=== PATIENT | male | born 1960 | race Caucasian/White ===

== ENCOUNTER 2020-01-31 23:31 | Observation (INO) | payer BC ==
[2020-01-31 23:41] VITALS: BMI 25.4
--- NOTE | 2020-01-31 23:47 | PDOC ---
History of Present Illness - General Chief Complaint: Chest Pain Stated Complaint: CHEST PAIN Time Seen by Provider: 01/31/20 23:46 - History of Present Illness Initial Comments: 02/01/20 00:46 59y/o M hx of sarcoidosis and acoustic neruoma. presents to ED with chest pain which began 3 hours ago. pain is stabbing in nature and left sided. worsens when he lays down and improves with sitting up. no radiation to his arm or back, and he has not had pain like this in the past. He denies any fevers, chills, shortness of breath, coughing, pleuritic chest pain, recent trauma, viral illness, hx of blood clots unilateral leg swelling. PCP: Dr. Schafer 02/01/20 00:57 Past History - Past Medical History Allergies/Adverse Reactions: Allergies Allergy/AdvReac Type Severity Reaction Status Date / Time No Known Allergies Allergy Verified 01/31/20 23:41 Home Medications: Ambulatory Orders predniSONE [Deltasone -] 5 mg PO DAILY 01/12/12 predniSONE [Deltasone -] 5 mg PO DAILY #7 tablet 01/28/13 Aspirin [ASA -] 81 mg PO DAILY #30 tab.chew 02/01/20 Atorvastatin Ca [Lipitor] 40 mg PO HS #30 tablet 02/01/20 COPD: Yes (sarcoidosis) - Surgical History Abdominal Surgery: Yes (acoustic neuroma) - Psycho Social/Smoking Cessation Hx Smoking Status: No Smoking History: Never smoked Have you smoked in the past 12 months: No Number of Cigarettes Smoked Daily: 0 Hx Alcohol Use: Yes (Occasional) Drug/Substance Use Hx: Yes Substance Use Type: Alcohol Hx Substance Use Treatment: No Review of Systems - Review of Systems Constitutional: No: Chills, Fever HEENTM: No: Eye Pain, Blurred Vision Respiratory: No: Cough, Shortness of Breath, Wheezing Cardiac (ROS): Yes: Chest Pain. No: Edema ABD/GI: No: Nausea, Vomiting : No: Burning, Dysuria Musculoskeletal: No: Back Pain, Joint Pain Integumentary: No: Bruising, Change in Color Neurological: No: Headache, Numbness, Tingling *Physical Exam - Vital Signs Last Vital Signs Temp Pulse Resp BP Pulse Ox 97.9 F 78 18 121/68 98 01/31/20 23:38 01/31/20 23:38 01/31/20 23:38 01/31/20 23:38 01/31/20 23:38 - Physical Exam 02/01/20 00:50 GENERAL: Awake, alert, and fully oriented, in no acute distress HEAD: No signs of trauma, normocephalic, atraumatic EYES:EOMI, sclera anicteric, conjunctiva clear ENT: Auricles normal inspection, hearing grossly normal, nares patent, oropharynx clear without exudates. Moist mucosa NECK: Normal ROM, supple, no lymphadenopathy, JVD, or masses LUNGS: No distress, speaks full sentences, clear to auscultation bilaterally HEART: Regular rate and rhythm, normal S1 and S2, no murmurs, rubs or gallops, peripheral pulses normal and equal bilaterally. ABDOMEN: Soft, nontender, normoactive bowel sounds. No guarding, no rebound. No masses EXTREMITIES : Normal inspection, Normal range of motion, no edema. No clubbing or cyanosis NEUROLOGICAL: Cranial nerves II through XII grossly intact. 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 presents to ED with chest pain which began 3 hours ago acs rule out workup; cbc, cmp, ekg, troponin, chest x-ray. 02/01/20 00:57 ekg: nsr, normal ekg. no st elevations. unchanged from 2012 ekg. trop negative on first troponin second troponin pending observe for ACS rule out signed out to Dr. Zimmer . 02/02/20 00:56 02/02/20 00:56 Discharge - Discharge Information Problems reviewed: Yes Clinical Impression/Diagnosis: Chest pain Qualifiers: Chest pain type: unspecified Qualified Code(s): R07.9 - Chest pain, unspecified Condition: Improved Disposition: HOME - Follow up/Referral - Patient Discharge Instructions - Post Discharge Activity
--- NOTE | 2020-01-31 23:53 | PDOC ---
Documentation entered by Melanie Chao SCRIBE, acting as scribe for Estelle Woodard MD. Estelle Woodard MD: This documentation has been prepared by the Jeremie jules Nirvannie, SCRIBE, under my direction and personally reviewed by me in its entirety. I confirm that the documentation accurately reflects all work, treatment, procedures, and medical decision making performed by me. Attending Attestation - Resident Resident Name: Javier Shaw - ED Attending Attestation I have performed the following: I have examined & evaluated the patient, The case was reviewed & discussed with the resident, I agree w/resident's findings & plan, Exceptions are as noted - HPI HPI: 02/01/20 00:35 The patient is a 59 year old male, with a significant past medical history of sarcoidosis (noncompliant with Prednisone), who presents to the emergency department with constant, waxing and waning, left sided chest pain. Patient notes his pain to onset while on her way to bed at 10pm and worsen while lying down rated a 7-8/10 and while sitting up 2-3/10. Per his at bedside, he just worked a double 11pm-3pm shift and he had only slept for an hour after shift. He denies any SOB, diaphoresis, or palpitations. Allergies: NKDA Past surgical history: Lung biopsy ' Primary Care Physician: Dr. Schafer Perishable Fruit Inspector: Dr. Gould Shoemaker Custom: Dr. Michel (no f/u, or echo since ). - Physicial Exam PE: 02/01/20 00:42 GENERAL: Well-appearing, well-nourished. No apparent distress. HEENT: Normocephalic, atraumatic. PERRL, EOM intact. CARDIOVASCULAR: Normal S1, S2. Regular rate and rhythm. PULMONARY: Clear to auscultation bilaterally. ABDOMEN: Soft, non-distended, non-tender. EXTREMITIES: Normal ROM in all four extremities. No gross deformities. SKIN: Warm, dry. No rash NEUROLOGICAL: No focal neurological deficits. 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
[2020-02-01] MEDS ORDERED: ACETAMINOPHEN 1000 MG/100 ML VIAL (NON FORMULARY) IVPB ONE (00:04)
[2020-02-01] MEDS ORDERED: ASPIRIN 325 MG ENTERIC COATED TABLET (FP) ONE (00:12)
[2020-02-01] MEDS ORDERED: ASPIRIN 325 MG TABLET PO ONE (00:12)
[2020-02-01 00:20] LABS: BASO % 0.7 % (0-2.0); EOS % 2.4 % (0-4.5); HEMATOCRIT 40.2 % (35.4-49); HEMOGLOBIN 13.6 GM/dL (11.7-16.9); LYMPH % 22.2 % (8-40); MCH 28.2 pg (25.7-33.7); MCHC 33.8 g/dl (32.0-35.9); MEAN CELL VOLUME 83.3 fl (80-96); MEAN PLT VOLUME 7.9 fl (7.5-11.1); NEUT % 64.7 % (42.8-82.8); PLATELET COUNT 182 K/MM3 (134-434); RBC 4.83 M/mm3 (4.00-5.60); RDW 13.7 % (11.9-15.9); WHITE BLOOD COUNT 6.1 K/mm3 (4.0-10.0)
[2020-02-01 00:31] LABS: INR 1.07 (0.83-1.09); PROTHROMBIN TIME (PATIENT) 12.6 SEC (9.7-13.0)
[2020-02-01 00:34] LABS: ACTIVATED PTT 35.4 SECONDS (25.2-36.5)
[2020-02-01 00:44] LABS: ALBUMIN 3.7 g/dl (3.4-5.0); ALK PHOS 88 U/L (45-117); ANION GAP 6 MMOL/L (8-16); BILIRUBIN,TOTAL 0.4 mg/dL (0.2-1); BLOOD UREA NITROGEN 18.8 mg/dL (7-18); CALCIUM 8.7 mg/dL (8.5-10.1); CHLORIDE 106 mmol/L (98-107); CO2 28 mmol/L (21-32); CREATININE 0.9 mg/dL (0.55-1.3); GLUCOSE,RANDOM 91 mg/dL (74-106); POTASSIUM 3.9 mmol/L (3.5-5.1); SGOT/AST 29 U/L (15-37); SGPT/ALT 39 U/L (13-61); SODIUM 140 mmol/L (136-145); TOT PROT 7.6 g/dl (6.4-8.2)
--- NOTE | 2020-02-01 02:07 | PDOC ---
*Physical Exam - Vital Signs Last Vital Signs Temp Pulse Resp BP Pulse Ox 97.9 F 78 18 121/68 98 01/31/20 23:38 01/31/20 23:38 01/31/20 23:38 01/31/20 23:38 01/31/20 23:38 ED Treatment Course - LABORATORY CBC & Chemistry Diagram: 02/01/20 00:00 02/01/20 00:00 - ADDITIONAL ORDERS Additional order review: Laboratory Results 02/01/20 02/01/20 00:00 00:00 PT with INR 12.60 INR 1.07 PTT (Actin FS) 35.4 Sodium 140 Potassium 3.9 Chloride 106 Carbon Dioxide 28 Anion Gap 6 L BUN 18.8 H Creatinine 0.9 Est GFR (CKD-EPI)AfAm 107.97 Est GFR (CKD-EPI)NonAf 93.16 Random Glucose 91 Calcium 8.7 Total Bilirubin 0.4 AST 29 ALT 39 Alkaline Phosphatase 88 Creatine Kinase 116 Troponin I < 0.02 Total Protein 7.6 Albumin 3.7 02/01/20 00:00 RBC 4.83 MCV 83.3 MCHC 33.8 RDW 13.7 MPV 7.9 Neutrophils % 64.7 Lymphocytes % 22.2 Monocytes % 10.0 Eosinophils % 2.4 Basophils % 0.7 - Medications Given in the ED: ED Medications Discontinued Medications Generic Name Dose Route Start Last Admin Trade Name Susi PRN Reason Stop Dose Admin Acetaminophen 1,000 mg 02/01/20 00:04 02/01/20 00:09 Ofirmev Injection - IVPB 02/01/20 00:05 1,000 mg ONCE ONE Administration Aspirin 325 mg 02/01/20 00:12 02/01/20 00:16 Asa - PO 02/01/20 00:13 325 mg ONCE ONE Administration Medical Decision Making - Medical Decision Making 02/01/20 02:03 Signed out to me by Dr. Shaw. 59M sarcoid, stabby chest pain Hasn't seen packer fuser in 7 years ([place]) Last ECHO 2012 No HTN, DM, HLD ECG WNL Trop negative Pending 3 hour trop 324 ASA given for angina HEART Score 3 CXR bedside read shows possible sarcoidosis but no other acute pathology [] TELE/OBS [] possibly AMA? 02/01/20 04:33 2nd trop negative Patient re-evaluated, still has 2/10 chest pain, non-reproducible, normal to auscultation. Recommended tele/obs, patient agrees. 02/01/20 05:00 Discussed case with EXCEPTIONAL NEEDS TEACHER jose Ramos for admit to tele/obs under Dr. Hall. Discharge - Discharge Information Problems reviewed: Yes Clinical Impression/Diagnosis: Chest pain Qualifiers: Chest pain type: unspecified Qualified Code(s): R07.9 - Chest pain, unspecified Condition: Stable - Admission Yes - Follow up/Referral Referrals: Kyle Schafer MD [Primary Care Provider] - - Patient Discharge Instructions - Post Discharge Activity
--- NOTE | 2020-02-01 05:15 | HP ---
Admitting History and Physical - Primary Care Physician PCP: Kyle Schafer - Admission Chief Complaint: Chest Pain History of Present Illness: This is a 59 y/o man with a PMHx of Sarcoidosis, Sleep Apnea. Who presents to the ED with L-sided CP non radiating. Patient describes the pain as sharp and stabbing intermittently. Patient reports that the pain increases with movement. Patient denies SOB, diaphoresis, palpitations, parasthesias. 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- [employer] History of Recent Travel: No Home Medications - Allergies Allergies/Adverse Reactions: Allergies Allergy/AdvReac Type Severity Reaction Status Date / Time No Known Allergies Allergy Verified 01/31/20 23:41 - Home Medications Home Medications: Ambulatory Orders predniSONE [Deltasone -] 5 mg PO DAILY 01/12/12 predniSONE [Deltasone -] 5 mg PO DAILY #7 tablet 01/28/13 Family Medical History Family Hx Cardiac Disorders: Father (Cardiac- Uncle) Family Hx Diabetes: Mother, Father, Sister Review of Systems - Review of Systems Constitutional: reports: No Symptoms Eyes: reports: No Symptoms HENT: reports: No Symptoms Neck: reports: No Symptoms Cardiovascular: reports: Chest Pain Gastrointestinal: reports: No Symptoms Genitourinary: reports: No Symptoms Breasts: reports: No Symptoms Reported Integumentary: reports: No Symptoms Neurological: reports: No Symptoms Endocrine: reports: No Symptoms Hematology/Lymphatic: reports: No Symptoms Psychiatric: reports: No Symptoms Physical Examination Vital Signs: Vital Signs Temperature 98.3 F 02/01/20 04:10 Pulse Rate 87 02/01/20 04:10 Respiratory Rate 20 02/01/20 04:10 Blood Pressure 135/80 02/01/20 04:10 O2 Sat by Pulse Oximetry (%) 98 02/01/20 04:10 Constitutional: Yes: Well Nourished, No Distress, Calm Eyes: Yes: WNL, Conjunctiva Clear, EOM Intact, PERRL HENT: Yes: WNL, Atraumatic, Normocephalic Neck: Yes: WNL, Supple, Trachea Midline Cardiovascular: Yes: WNL, Regular Rate and Rhythm, S1, S2 Respiratory: Yes: WNL, Regular, CTA Bilaterally Gastrointestinal: Yes: WNL, Normal Bowel Sounds, Soft ...Rectal Exam: Yes: Deferred Renal/: Yes: WNL Breast(s): Yes: WNL Musculoskeletal: Yes: WNL Extremities: Yes: WNL Edema: No Peripheral Pulses WNL: Yes Integumentary: Yes: WNL Neurological: Yes: WNL, Alert, Oriented, Cran Nerves II-XII Intact ...Motor Strength: WNL Psychiatric: Yes: WNL, Alert, Oriented Labs: CBC, BMP 02/01/20 00:00 02/01/20 00:00 Laboratory Results - last 24 hr 02/01/20 02/01/20 02/01/20 00:00 00:00 00:00 WBC 6.1 RBC 4.83 Hgb 13.6 Hct 40.2 MCV 83.3 MCH 28.2 MCHC 33.8 RDW 13.7 Plt Count 182 MPV 7.9 Absolute Neuts (auto) 3.9 Neutrophils % 64.7 Lymphocytes % 22.2 Monocytes % 10.0 Eosinophils % 2.4 Basophils % 0.7 Nucleated RBC % 0 PT with INR 12.60 INR 1.07 PTT (Actin FS) 35.4 Sodium 140 Potassium 3.9 Chloride 106 Carbon Dioxide 28 Anion Gap 6 L BUN 18.8 H Creatinine 0.9 Est GFR (CKD-EPI)AfAm 107.97 Est GFR (CKD-EPI)NonAf 93.16 Random Glucose 91 Calcium 8.7 Total Bilirubin 0.4 AST 29 ALT 39 Alkaline Phosphatase 88 Creatine Kinase 116 Troponin I < 0.02 Total Protein 7.6 Albumin 3.7 02/01/20 02:47 WBC RBC Hgb Hct MCV MCH MCHC RDW Plt Count MPV Absolute Neuts (auto) Neutrophils % Lymphocytes % Monocytes % Eosinophils % Basophils % Nucleated RBC % PT with INR INR PTT (Actin FS) Sodium Potassium Chloride Carbon Dioxide Anion Gap BUN Creatinine Est GFR (CKD-EPI)AfAm Est GFR (CKD-EPI)NonAf Random Glucose Calcium Total Bilirubin AST ALT Alkaline Phosphatase Creatine Kinase Troponin I < 0.02 Total Protein Albumin Intake & Output 01/29/20 01/30/20 01/31/20 02/01/20 23:59 23:59 23:59 23:59 Weight 78.018 kg Current Medications Generic Name Dose Route Start Last Admin Trade Name Susi PRN Reason Stop Dose Admin Aspirin 81 mg 02/02/20 10:00 Asa - PO DAILY DEBBIE Imaging - Results Chest X-ray: Image Reviewed EKG: Image Reviewed Problem List - Problems (1) Chest pain Assessment/Plan: r/o ACS HEART Score 3 Continue cardiac monitoring Serial Enzymes negx2, will trend Appreciate Cardiology consult Echo in am Stress Test in am Lipid Panel, Mg, Phos today Asa Monitor CBC, BMP Code(s): R07.9 - CHEST PAIN, UNSPECIFIED Qualifiers: Chest pain type: unspecified Qualified Code(s): R07.9 - Chest pain, unspecified (2) Sarcoidosis Assessment/Plan: Will continue to treat with interventions accordingly Appreciate Pulmonology consult Monitor vitals Code(s): D86.9 - SARCOIDOSIS, UNSPECIFIED (3) Sleep apnea Assessment/Plan: continue with treatment, accordingly Code(s): G47.30 - SLEEP APNEA, UNSPECIFIED Assessment/Plan This is a 59 y/o male with a PMHx of Sarcoidosis, Sleep Apnea. Placed in Telemetry Observation for Chest Pain r/o ACS. Plan: See Problem List FEN PO fluids as tolerated Replete lytes prn Low Na Diet DVT ppx OOB SCDs Consider AC if LOS > 48 hrs Dispo: Observation Visit type - Emergency Visit Emergency Visit: Yes ED Registration Date: 01/31/20 Care time: The patient presented to the Emergency Department on the above date and was hospitalized for further evaluation of their emergent condition. - New Patient This patient is new to me today: Yes Date on this admission: 02/01/20 - Critical Care Critical Care patient: No
--- NOTE | 2020-02-01 07:58 | PN ---
Progress Note, Physician - Current Medication List Current Medications: Active Medications Aspirin (Asa -) 81 mg PO DAILY DEBBIE - Objective Vital Signs: Vital Signs Temperature 98.3 F 02/01/20 04:10 Pulse Rate 87 02/01/20 04:10 Respiratory Rate 20 02/01/20 04:10 Blood Pressure 135/80 02/01/20 04:10 O2 Sat by Pulse Oximetry (%) 98 02/01/20 04:10 Labs: CBC, BMP 02/01/20 00:00 02/01/20 00:00 INR, PTT INR 1.07 (0.83-1.09) 02/01/20 00:00
--- NOTE | 2020-02-01 07:59 | CON.CARD ---
Consult Consult Specialty:: Cardiology - History of Present Illness History of Present Illness: This is a 59 y/o man with a PMHx of Sarcoidosis, Sleep Apnea. Who presents to the ED with L-sided CP non radiating. Patient describes the pain as sharp and stabbing intermittently. Patient reports that the pain increases with movement. Patient denies SOB, diaphoresis, palpitations, parasthesias. 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- [employer] History of Recent Travel: No Home Medications - Allergies Allergies/Adverse Reactions: Allergies Allergy/AdvReac Type Severity Reaction Status Date / Time No Known Allergies Allergy Verified 01/31/20 23:41 - Home Medications Home Medications: Ambulatory Orders predniSONE [Deltasone -] 5 mg PO DAILY 01/12/12 predniSONE [Deltasone -] 5 mg PO DAILY #7 tablet 01/28/13 Review of Systems - Review of Systems Constitutional: reports: No Symptoms Eyes: reports: No Symptoms HENT: reports: No Symptoms Neck: reports: No Symptoms Cardiovascular: reports: Chest Pain Respiratory: reports: No Symptoms Gastrointestinal: reports: No Symptoms Genitourinary: reports: No Symptoms Breasts: reports: No Symptoms Reported Musculoskeletal: reports: No Symptoms Integumentary: reports: No Symptoms Neurological: reports: No Symptoms Endocrine: reports: No Symptoms Hematology/Lymphatic: reports: No Symptoms Psychiatric: reports: No Symptoms Vital Signs: Vital Signs Temperature 98.3 F 02/01/20 04:10 Pulse Rate 87 02/01/20 04:10 Respiratory Rate 20 02/01/20 04:10 Blood Pressure 135/80 02/01/20 04:10 O2 Sat by Pulse Oximetry (%) 98 02/01/20 04:10 Constitutional: Yes: Well Nourished, No Distress, Calm Eyes: Yes: WNL, Conjunctiva Clear, EOM Intact HENT: Yes: WNL, Atraumatic, Normocephalic Neck: Yes: WNL, Supple, Trachea Midline Respiratory: Yes: WNL, Regular, CTA Bilaterally Gastrointestinal: Yes: WNL, Normal Bowel Sounds Renal/: Yes: WNL Cardiovascular: Yes: WNL, Regular Rate and Rhythm Musculoskeletal: Yes: WNL Extremities: Yes: WNL Integumentary: Yes: WNL Neurological: Yes: WNL, Alert, Oriented ...Motor Strength: WNL Psychiatric: Yes: WNL, Alert, Oriented - Other Data Labs, Other Data: CBC, BMP 02/01/20 00:00 02/01/20 00:00 INR, PTT INR 1.07 (0.83-1.09) 02/01/20 00:00 Troponin, BNP 02/01/20 02/01/20 00:00 02:47 Troponin I < 0.02 < 0.02 Troponin, BNP 02/01/20 02/01/20 00:00 02:47 Troponin I < 0.02 < 0.02 Imaging - Results Chest X-ray: Image Reviewed (no i/e) EKG: Image Reviewed (sr wnl) Assessment/Plan 59 y/o man with a PMHx of Sarcoidosis, HLP, Sleep Apnea. Who presents to the ED with L-sided CP non radiating. Patient describes the pain as sharp and stabbing intermittently. Plan; ASA ECHO EST start lipitor to lowe LDL below 100 will f/u
[2020-02-01 09:25] LABS: CHOLESTEROL 227 mg/dL (50-200); HDL CHOLESTEROL 43 mg/dL (40-60); LDL CHOLESTEROL (ONLY SJRH) 154 mg/dL (5-100); PHOSPHOROUS 2.8 mg/dL (2.5-4.9); TRIGLYCERIDES 143 mg/dL (0-150)
--- NOTE | 2020-02-01 15:11 | ECHO ---
Name: MARY BETH FIERRO Jordon Exam:Adult Echocardiogram Study Date: 02/01/2020 02:20 PM Age: 59 yrs Reason For Study: Chest pain Height: 69 in Weight: 172 lb BSA: 1.9 m2 MMode/2D Measurements & Calculations IVSd: 0.91 cm Ao root diam: 2.9 cm LVIDd: 4.0 cm LA dimension: 3.1 cm LVIDs: 2.9 cm LVPWd: 1.2 cm LVPWs: 1.5 cm EDV(Teich): 68.5 ml ESV(Teich): 31.3 ml LVOT diam: 2.0 cm LAV (MOD-bp): 36.0 ml RV S Mu: 12.1 cm/sec Doppler Measurements & Calculations MV E max mu: 55.8 cm/sec Ao V2 max: 123.1 cm/sec MV A max mu: 56.8 cm/sec Ao max P.1 mmHg MV E/A: 0.98 JENNY(V,D): 2.6 cm2 MV dec time: 0.14 sec LV V1 max P.4 mmHg MR max mu: 345.8 cm/sec LV V1 max: 105.1 cm/sec MR max P.8 mmHg TR max mu: 252.1 cm/sec PA V2 max: 126.2 cm/sec TR max P.5 mmHg PA max P.4 mmHg Med Peak E' Mu: 6.3 cm/sec Med E/e': 8.9 Lat Peak E' Mu: 15.9 cm/sec Lat E/e': 3.5 Procedure A complete two-dimensional transthoracic echocardiogram was performed (2D, M-mode, Doppler and color flow Doppler). Left Ventricle The left ventricle is normal in size. Left ventricular systolic function is normal. Ejection Fraction = 55- 60%. No regional wall motion abnormalities noted. Right Ventricle The right ventricle is normal size. The right ventricular systolic function is normal. Atria The left atrial size is normal. Right atrial size is normal. Mitral Valve The mitral valve is normal in structure and function. There is trace mitral regurgitation. Tricuspid Valve The tricuspid valve is normal in structure and function. No tricuspid regurgitation. Aortic Valve The aortic valve is normal in structure and function. No aortic regurgitation is present. Pulmonic Valve The pulmonic valve is not well visualized. Great Vessels The aortic root is normal size. Pericardium/Pleura There is no pericardial effusion. Interpretation Summary The left ventricle is normal in size. Left ventricular systolic function is normal. No regional wall motion abnormalities noted. Ejection Fraction = 55-60%. There is trace mitral regurgitation. There is no pericardial effusion. Alexander Aleman MD 02/01/2020 03:10 PM
--- NOTE | 2020-02-01 15:59 | TRE ---
Protocol Name : BONITA Max Work Load (METS*10) : 85 Time In Exercise Phase : 00:07:00 Max. Systolic BP : 160 mmHg Max Diastolic BP : 70 mmHg Max Heart Rate : 157 BPM Max Predicted Heart Rate : 161 BPM Attending Physician : DR. CARUSO Reason For Termination : Target Heart Rate Achieved Reason for Test : CHEST PAIN Stress Protocol : BONITA Rest HR : 79 BPM PeakEx METs : 8.5 METS Arrhythmias : Ventricular Premature Beats, Isolated Resting ECG : Normal Recovery ECG Response (OLD) : Overall Impression : Normal stress test Chest Pain : No Chest Pain HR Response To Exercise : Normal Overall HR Response To Exercise BP Response To Exercise : Normal Resting BP with Appropriate Response Functional Capacity : Normal Diagnosis : 1. NEGATIVE STRESS TEST 2. APPROPRIATE BLOOD PRESSURE RESPONSE 3. FAIR EXERCISE TOLERANCE AND CAPACITY. PATIENT EXERCISED 7 MIN INTO STAGE 3 BONITA PROTOCOL AND ACHIEVED 97% OF MPTHR 4. NO SIGNIFICANT ECG ABNORMALITIES. RARE PVC Confirmed by NADINE DUTTA MD ([id number]) on 02/01/2020 3:59:19 PM
--- NOTE | 2020-02-01 16:09 | EKG ---
Test Reason : Blood Pressure : / mmHG Vent. Rate : 067 BPM Atrial Rate : 067 BPM P-R Int : 180 ms QRS Dur : 092 ms QT Int : 402 ms P-R-T Axes : 060 044 052 degrees QTc Int : 424 ms NORMAL SINUS RHYTHM NORMAL ECG WHEN COMPARED WITH ECG OF 27-JAN-2013 09:13, NO SIGNIFICANT CHANGE WAS FOUND Confirmed by NADINE DUTTA MD ([id number]) on 02/01/2020 4:09:00 PM Referred By: Confirmed By:NADINE DUTTA MD
--- NOTE | 2020-02-01 16:22 | DS ---
Physical Examination Vital Signs: Vital Signs Temperature 97.9 F 02/01/20 13:00 Pulse Rate 74 02/01/20 13:00 Respiratory Rate 17 02/01/20 13:00 Blood Pressure 121/73 02/01/20 13:00 O2 Sat by Pulse Oximetry (%) 98 02/01/20 04:10 Findings/Remarks: STRESS TEST NEGATIVE Constitutional: Yes: No Distress Eyes: Yes: WNL HENT: Yes: WNL Neck: Yes: WNL Cardiovascular: Yes: WNL Respiratory: Yes: WNL Gastrointestinal: Yes: WNL ...Rectal Exam: Yes: WNL Renal/: Yes: WNL Musculoskeletal: Yes: WNL Extremities: Yes: WNL Labs: CBC, BMP 02/01/20 00:00 02/01/20 00:00 Discharge Summary Problems reviewed: Yes Reason For Visit: CHEST PAIN Current Active Problems Chest pain (Acute) Sarcoidosis (Acute) Sleep apnea (Acute) Procedures: Principal: STRESS TEST AND ECHO Hospital Course: RULE OUT RI, STRESS TEST AND ECHO WNL, CAN F/U OUTPATIENT Condition: Improved - Instructions Diet, Activity, Other Instructions: SEE DR SCHAFER IN 2 WEEKS Referrals: Kyle Schafer MD [Primary Care Provider] - Disposition: HOME - Home Medications Comprehensive Discharge Medication List: Ambulatory Orders predniSONE [Deltasone -] 5 mg PO DAILY 01/12/12 predniSONE [Deltasone -] 5 mg PO DAILY #7 tablet 01/28/13 Aspirin [ASA -] 81 mg PO DAILY #30 tab.chew 02/01/20 Atorvastatin Ca [Lipitor] 40 mg PO HS #30 tablet 02/01/20
--- NOTE | 2020-02-01 16:33 | CON.PULM ---
Consult Consult Specialty:: PULMONARY Referred by:: Dr Schafer Reason for Consultation:: chest pain - History of Present Illness Chief Complaint: chest pain History of Present Illness: 59yo male with h/o sarcoidosis, sleep apnea who presented with left sided chest pain upon lying down. Pain described as sharp, stabbing radiating to back worse with lying down, improved with sitting up. No shortness of breath, cough or wheezing. No fevers, chills or sweats. CXR was clear. Pain reproducible with palpation. Diagnosed with sarcoidosis about 8 years ago, maintained on low dose prednisone. 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- [employer] History of Recent Travel: No Home Medications - Allergies Allergies/Adverse Reactions: Allergies Allergy/AdvReac Type Severity Reaction Status Date / Time No Known Allergies Allergy Verified 01/31/20 23:41 - Home Medications Home Medications: Ambulatory Orders predniSONE [Deltasone -] 5 mg PO DAILY 01/12/12 predniSONE [Deltasone -] 5 mg PO DAILY #7 tablet 01/28/13 Aspirin [ASA -] 81 mg PO DAILY #30 tab.chew 02/01/20 Atorvastatin Ca [Lipitor] 40 mg PO HS #30 tablet 02/01/20 Review of Systems - Review of Systems Constitutional: denies: Chills, Fever Eyes: denies: Recent Change in Vision HENT: denies: Nasal Congestion, Throat Pain Neck: denies: Stiffness, Tenderness Cardiovascular: reports: Chest Pain. denies: Shortness of Breath Respiratory: denies: Cough, Hemoptysis, Wheezing Gastrointestinal: denies: Abdominal Pain, Nausea, Vomiting Genitourinary: denies: Dysuria, Hematuria Neurological: denies: Dizziness, Headache Endocrine: denies: Unexplained Weight Loss Physical Exam Vital Sings: Vital Signs Temperature 97.9 F 02/01/20 13:00 Pulse Rate 74 02/01/20 13:00 Respiratory Rate 17 02/01/20 13:00 Blood Pressure 121/73 02/01/20 13:00 O2 Sat by Pulse Oximetry (%) 98 02/01/20 04:10 Constitutional: Yes: Calm Eyes: Yes: Conjunctiva Clear, EOM Intact HENT: Yes: Atraumatic, Normocephalic Neck: Yes: Supple, Trachea Midline Cardiovascular: Yes: Regular Rate and Rhythm Respiratory: Yes: CTA Bilaterally ...Clubbing: No Gastrointestinal: Yes: Normal Bowel Sounds, Soft. No: Tenderness Edema: No Neurological: Yes: Alert, Oriented Labs: CBC, BMP 02/01/20 00:00 02/01/20 00:00 Imaging - Results Chest X-ray: Report Reviewed, Image Reviewed (no infiltrate) Problem List - Problems (1) Chest pain Code(s): R07.9 - CHEST PAIN, UNSPECIFIED Qualifiers: Chest pain type: unspecified Qualified Code(s): R07.9 - Chest pain, unspecified Assessment/Plan Chest Pain likely Musculoskeletal Sarcoidosis Sleep Apnea - CXR, echocardiogram unremarkable - pain now 12/28, reproducible, can monitor as outpt Thank you for this consult Rojas Anderson MD
[2020-02-01 16:34] VITALS: BP 107/67; PULSE 91; TEMP 98.2
[2020-02-01] MEDS ORDERED: ATORVASTATIN CA 40 MG TABLET (FP) PO SCH (22:00)
[2020-02-02] MEDS ORDERED: ASPIRIN 81 MG CHEWABLE TABLETS PO SCH (10:00)
== END 2020-02-01 16:49 | disposition home or self-care (01) ==
LOC: JER 23:31 → JERBED 02-01 04:35
PROVIDERS: ADMIT Internal Medicine; ATTEND Family Medicine
PROC: 3E033NZ Introduction of Analgesics, Hypnotics, Sedatives into Peripheral Vein, Percutaneous Approach (ICD-10-PCS; principal; 2020-02-01)
DX: R07.89 Other chest pain (principal); D86.9 Sarcoidosis, unspecified; G47.30 Sleep apnea, unspecified
CPT/HCPCS: 36415; 71045-TC-FY; 80053; 80061; 82550; 83721; 83735; 84100; 84443; 84484; 85025; 85610; 85730; 93005; 93010; 93017; 93018; 93306-TC; 99285-25; G0378; J0131

== ENCOUNTER 2025-05-24 07:01 | Day surgery (SDC) | payer BC ==
[2025-05-05 15:33] VITALS: BMI 26.4
[2025-05-24 08:40] VITALS: TEMP 98.1
[2025-05-24 08:45] VITALS: PULSE 70
[2025-05-24 09:12] VITALS: BP 101/64; RESP 16
== END 2025-05-24 09:14 | disposition home or self-care (01) ==
LOC: JASU-ENDO 07:01
PROVIDERS: ATTEND Internal Medicine Gastroenterology
PROC: 0DJD8ZZ Inspection of Lower Intestinal Tract, Via Natural or Artificial Opening Endoscopic (ICD-10-PCS; principal; 2025-05-24 08:00)
DX: Z12.11 Encounter for screening for malignant neoplasm of colon (principal); K64.8 Other hemorrhoids